=== PATIENT | female | born 1965 | race Caucasian/White ===

== ENCOUNTER 2023-10-08 12:30 | Outpatient (OUT) | payer BC, SELFPAY | END 2023-10-08 12:31 | disposition home or self-care (01) | PROVIDERS: Visit Provider Orthopaedic Surgery | DX: Z01.818 Encounter for other preprocedural examination (principal); G56.02 Carpal tunnel syndrome, left upper limb; I10 Essential (primary) hypertension; I25.2 Old myocardial infarction ==

== ENCOUNTER 2023-10-08 12:35 | Outpatient (OUT) | payer BC, SELFPAY ==
--- NOTE | 2023-10-08 12:56 | ECG_ITS ---
The [facility] Test Date: 2023-10-08 Pat Name: ROSENDA MOYER Department: Room: - Gender: Female [employer]: : 1965 Requested By: [id number] Order Number: [id number] Reading MD: BRITTANI DUNLAP Measurements Intervals [place] Rate: 51 P: 59 MI: 230 QRS: 6 QRSD: 102 T: 36 QT: 459 QTc: 424 Interpretive Statements SINUS BRADYCARDIA WITH FIRST DEGREE AV BLOCK Low voltage across the precordium No previous ECG available for comparison Electronically Signed On 10-09-2023 6:56:12 EST by BRITTANI DUNLAP
--- NOTE | 2023-10-08 13:42 | XR_ITS ---
The [address] [address] Patient Name: ROSENDA MOYER MRN: [id number] date: 1965 Sex: F Assigned Patient Location: [facility] Current Patient Location: [facility] Accession/Order Number: [id number] Exam Date: 10/08/2023 14:05 Report Date: 10/08/2023 14:23 At the request of: GRACIE NAVAS Procedure: XR chest 2V EXAM: XR chest 2V HISTORY: Preop exam COMPARISON: 09/07/2020 TECHNIQUE: Upright PA and lateral chest x-ray FINDINGS: The heart is not enlarged and the vasculature is not distended. There is been interval clearing of the lungs. Focal eventration of the right hemidiaphragm is noted. No acute infiltrate, effusion or pneumothorax is identified. A loop recorder is noted. Degenerative changes are seen in the spine. XR/XR chest 2V IMPRESSION: No acute infiltrate or evidence of cardiac decompensation. There is been interval clearing of the lungs, and placement of a loop recorder. Electronically authenticated by: JENNIFER GILL Date: 10/08/2023 14:23
[2023-10-08 14:18] LABS: Basophils Absolute Auto 0.1 10^3/uL (0.0-0.1); Basophils Percent Auto 1.4 % (0.2-2.0); Eosinophils Absolute Auto 0.2 10^3/uL (0.0-0.7); Eosinophils Percent Auto 4.3 % (0.9-7.0); Hematocrit 32.9 % (36.0-48.0); Hemoglobin 10.2 g/dL (12.0-16.0); Immature Granulocytes Abs Auto 0.01 10^3/uL (0.00-0.03); Immature Granulocytes Pct Auto 0.2 % (0.0-0.5); Lymphocytes Absolute Auto 1.6 10^3/uL (1.2-3.8); Lymphocytes Percent Auto 32.8 % (20.5-60.0); Mean Corpuscular Hemoglobin 23.5 pg (26.7-34.0); Mean Corpuscular Volume 75.8 fL (81.0-99.0); Mean Platelet Volume 9.5 fL (9.5-13.5); Monocytes Absolute Auto 0.5 10^3/uL (0.3-0.8); Monocytes Percent Auto 10.9 % (1.7-12.0); Neutrophils Absolute Auto 2.5 10^3/uL (1.4-6.5); Neutrophils Percent Auto 50.4 % (43.0-75.0); Platelet Count 324 10^3/uL (150-450); Red Blood Count 4.34 10^6/uL (4.20-5.40); Red Cell Distribution Width 18.5 % (11.0-15.0); White Blood Count 4.9 10^3/uL (4.0-11.0)
[2023-10-08 14:33] LABS: Partial Thromboplastin Time 39.1 sec (22.3-36.2); Prothrombin Time 14.6 sec (9.0-11.6)
[2023-10-08 14:43] LABS: Anion Gap 11.3; BUN Creatinine Ratio 17.9; Carbon Dioxide 27.8 mmol/L (21.0-32.0); Chloride 102 mmol/L (98-107); Estimated GFR (African America >60 (>=60); Estimated GFR (Non-African Ame 54 (>=60); Glucose 84 mg/dL (74-106); Potassium 4.1 mmol/L (3.5-5.1); Sodium 137 mmol/L (136-145)
== END 2023-10-08 12:36 | disposition home or self-care (01) ==
PROVIDERS: Visit Provider Orthopaedic Surgery
DX: Z01.810 Encounter for preprocedural cardiovascular examination (principal); Z01.812 Encounter for preprocedural laboratory examination; G56.01 Carpal tunnel syndrome, right upper limb
CPT/HCPCS: 71046; 80048; 85025; 85610; 85730; 93005

== ENCOUNTER 2023-10-14 11:39 | Day surgery (SDC) | payer BC, SELFPAY ==
[2023-10-08 13:48] VITALS: BP 157/91; PULSE 73; RESP 22; TEMP 36.3; O2SAT 98; BMI 35.8
[2023-10-14] VITALS (9 sets, daily range): BP systolic 143–160; BP diastolic 72–94; PULSE 65–76; RESP 14–16; TEMP 36.3; O2SAT 95–98; BMI 36.1
[2023-10-14] MEDS: LACTATED RINGER'S SOLUTION 1,000 ML 50 ML IV (12:21)
[2023-10-14] MEDS: CEFAZOLIN SODIUM/DEXTROSE,ISO 2 GM/50 ML PIGGYBACK IV (12:44)
--- NOTE | 2023-10-14 12:52 | PM.ORPRC ---
Procedure Note Date of procedure: 10/14/23 Pre-op diagnosis: Right carpal tunnel syndrom Post-op diagnosis: same as pre-op Procedure: Preoperative Diagnosis: Left carpal tunnel syndrome Postoperative Diagnosis: Same Procedure: Left endoscopic carpal tunnel release Surgeon: Olivia Anesthesia: general LMA Estimated blood loss:Minimal Tourniquet time: 2 Minutes at 225 mmHg Complications: None Indications for Surgery: The patient has had signs and symptoms of carpal tunnel syndrome that have failed conservative treatment. Options were discussed with the patient as well as risks and benefits and they have elected to proceed with the surgery. Operative procedure: Prior to surgery the patient received IV antibiotics. The operative extremity was marked preoperatively. After informed consent was obtained the patient was brought to the operating room where MAC anesthesia was administered. Preoperatively 5 mm 0.5% Marcaine plain with 5 mm 1% lidocaine with epinephrine were infiltrated in the operative sight. The arm was then prepped and draped in the usual sterile fashion after placement of a well padded tourniquet. The arm was elevated, exsanguinated, and the tourniquet was inflated. A 1 cm incision was then made in a preexisting distal wrist crease. Hemostasis was achieved with bipolar electrocautery. Blunt dissection was then carried down to the forearm fascia where a U-based flap was created. Proximally the fascia was incised for 2 cm under direct visualization. Attention was then turned to the endoscopic carpal tunnel release. The synovial elevator was used to clear the underside of the transverse carpal ligament of soft tissue. Sequential dilators were then placed. The endoscopic carpal tunnel released instrument was then placed. The transverse fibers were then identified and release from distal to proximal. The ligament was completely release. The tourniquet was deflated and hemostasis was achieved. The wound was irrigated and closed with a nylon suture. A sterile dressing was placed. The patient was brought to the recovery room. There were no preoperative or postoperative complications. Anesthesia: General-LMA Surgeon: Bill Baker Estimated blood loss (mL): 1 Pathology: none sent Condition: stable Disposition: PACU
[2023-10-14] MEDS: BUPIVACAINE HCL 0.5% PF 50 MG/10 ML VIAL INJ (13:01)
[2023-10-14] MEDS: LIDOCAINE HCL 1%-EPINEPHRINE 1:100,000 10 ML MDV INJ (13:01)
== END 2023-10-14 14:35 | disposition home or self-care (01) ==
PROVIDERS: Visit Provider Orthopaedic Surgery
PROC: (CPT 1810; principal; 2023-10-14 13:00)
DX: G56.01 Carpal tunnel syndrome, right upper limb (principal); J44.9 Chronic obstructive pulmonary disease, unspecified; I48.91 Unspecified atrial fibrillation; I25.10 Atherosclerotic heart disease of native coronary artery without angina pectoris; I11.0 Hypertensive heart disease with heart failure; I50.9 Heart failure, unspecified; I25.2 Old myocardial infarction; G47.30 Sleep apnea, unspecified; Z79.01 Long term (current) use of anticoagulants; Z98.84 Bariatric surgery status; K21.9 Gastro-esophageal reflux disease without esophagitis
CPT/HCPCS: 29848; 36415; J2704

== ENCOUNTER 2023-10-28 11:40 | Day surgery (SDC) | payer BC, SELFPAY ==
[2023-10-28] VITALS (9 sets, daily range): BP systolic 117–154; BP diastolic 53–100; PULSE 62–76; RESP 12–16; TEMP 36.1–36.5; O2SAT 93–97; BMI 35.4
[2023-10-28] MEDS: LACTATED RINGER'S SOLUTION 1,000 ML 50 ML IV (12:26)
[2023-10-28] MEDS: CEFAZOLIN SODIUM/DEXTROSE,ISO 2 GM/50 ML PIGGYBACK IV (13:50)
[2023-10-28] MEDS: LIDOCAINE HCL 1%-EPINEPHRINE 1:100,000 10 ML MDV 5 ML INJ (14:39)
[2023-10-28] MEDS: BUPIVACAINE HCL 0.5% PF 50 MG/10 ML VIAL 5 ML INJ (14:39)
--- NOTE | 2023-10-28 16:46 | PM.ORPRC ---
Procedure Note Date of procedure: 10/28/23 Pre-op diagnosis: Left carpal tunnel syndrome Post-op diagnosis: same as pre-op Procedure: Preoperative Diagnosis: Left carpal tunnel syndrome Postoperative Diagnosis: Same Procedure: Left endoscopic carpal tunnel release Surgeon: Olivia Anesthesia: Local with MAC Estimated blood loss:Minimal Tourniquet time: 3 Minutes at 200 mmHg Complications: None Indications for Surgery: The patient has had signs and symptoms of carpal tunnel syndrome that have failed conservative treatment. Options were discussed with the patient as well as risks and benefits and they have elected to proceed with the surgery. Operative procedure: Prior to surgery the patient received IV antibiotics. The operative extremity was marked preoperatively. After informed consent was obtained the patient was brought to the operating room where MAC anesthesia was administered. Preoperatively 5 mm 0.5% Marcaine plain with 5 mm 1% lidocaine with epinephrine were infiltrated in the operative sight. The arm was then prepped and draped in the usual sterile fashion after placement of a well padded tourniquet. The arm was elevated, exsanguinated, and the tourniquet was inflated. A 1 cm incision was then made in a preexisting distal wrist crease. Hemostasis was achieved with bipolar electrocautery. Blunt dissection was then carried down to the forearm fascia where a U-based flap was created. Proximally the fascia was incised for 2 cm under direct visualization. Attention was then turned to the endoscopic carpal tunnel release. The synovial elevator was used to clear the underside of the transverse carpal ligament of soft tissue. Sequential dilators were then placed. The endoscopic carpal tunnel released instrument was then placed. The transverse fibers were then identified and release from distal to proximal. The ligament was completely release. The tourniquet was deflated and hemostasis was achieved. The wound was irrigated and closed with a nylon suture. A sterile dressing was placed. The patient was brought to the recovery room. There were no preoperative or postoperative complications. Anesthesia: General-LMA Estimated blood loss (mL): 1 Pathology: none sent Condition: stable Disposition: PACU
== END 2023-10-28 15:33 | disposition home or self-care (01) ==
PROVIDERS: Visit Provider Orthopaedic Surgery
PROC: (CPT 1810; principal; 2023-10-28 13:00)
DX: G56.02 Carpal tunnel syndrome, left upper limb (principal); I10 Essential (primary) hypertension; I25.2 Old myocardial infarction; J45.909 Unspecified asthma, uncomplicated; I25.10 Atherosclerotic heart disease of native coronary artery without angina pectoris; G47.30 Sleep apnea, unspecified; Z98.84 Bariatric surgery status; Z87.891 Personal history of nicotine dependence; E78.5 Hyperlipidemia, unspecified; Z95.5 Presence of coronary angioplasty implant and graft; K21.9 Gastro-esophageal reflux disease without esophagitis
CPT/HCPCS: 29848; J2704